=== PATIENT | female | born 1970 | race Caucasian/White ===

== ENCOUNTER → 2016-11-24 | Outpatient (CLI) | payer OTHER ==
[~2016-11-24] MED LIST: CEPH500C PO; CETI10TA84 PO; LDXCR60 TOP; PERM5CRE5 EXT
== END ==
LOC: C.LABSPEC 18:09
PROVIDERS: ATTEND Physician Assistant
DX: T19.2XXA Foreign body in vulva and vagina, initial encounter (principal); N76.0 Acute vaginitis; X58.XXXA Exposure to other specified factors, initial encounter

== ENCOUNTER → 2016-12-17 | Outpatient (CLI) | payer OTHER | END | disposition home or self-care (01) | LOC: C.PAPS 13:41 | PROVIDERS: ATTEND Obstetrics & Gynecology | DX: Z01.411 Encounter for gynecological examination (general) (routine) with abnormal findings (principal); R87.610 Atypical squamous cells of undetermined significance on cytologic smear of cervix (ASC-US) ==

== ENCOUNTER 2017-07-08 11:25 | Emergency (ER) | payer OTHER ==
[~2017-07-08] VITALS: Ht 160 cm; Wt 64.7 kg
[2017-07-08 11:32] VITALS: TEMP 36.6; Ht 160 cm; Wt 64.7 kg
[2017-07-08] MEDS ORDERED: SODIUM CHLORIDE 0.9% 1000ML 1,000 ML IV STA (11:46)
--- NOTE | 2017-07-08 11:50 | EMERGENCY ROOM VISIT NOTE ---
History Report prepared by Adrienne: Jose Jeronimo Under the Supervision of: Dr. Brandon Munson M.D. First contact with patient: 11:36 Chief Complaint: RAPID HEART RATE Stated Complaint: RAPID HEART RATE Nursing Triage Summary: pt reports rapid hr on meds . starting tuesday night has been 140's called pcp sent here for eval History of Present Illness The patient is a 46 year old female who presents to the Emergency Room for evaluation of tachycardia. Notes feeling palpitations starting a few days ago. Admits this started after she had not taken her Verapamil for last a while. Admits similar to previous episode of SVT. Has taken her Verapamil this morning. Other than just a bit tired really no other symptoms. Denies cp, syncope, sob, nausea, vomiting, headache nor any other symptoms. No interventions attempted for this. Discussed with PCP who advised ED evaluations. States she feels well currently. Previously has required IV Adenosine for treatment of SVT. Source of History: patient Onset: 2 days ago Position: other (global) Timing: constant Associated Symptoms: No headache, No chest pain, No SOB, No nausea, No vomiting Review of Systems See HPI for pertinent positives & negatives. A total of 10 systems reviewed and were otherwise negative. Past Medical & Surgical Medical Problems: (1) Hx-Venous Thrombosis&Embolism (2) Ovarian Cyst Nec/Nos Family History Diabetes mellitus Heart disease Hypertension Social History Smoking Status: Never Smoker Alcohol Use: none Marital Status: Housing Status: lives with family Occupation Status: employed Current/Historical Medications Scheduled Verapamil Hcl (Verapamil Hcl Er), 240 MG PO DAILY Allergies Coded Allergies: No Known Allergies (Verified , 07/08/17) Physical Exam Vital Signs Date Time Temp Pulse Resp B/P (MAP) Pulse Ox O2 Delivery O2 Flow Rate FiO2 07/08/17 12:50 72 20 103/72 100 07/08/17 12:32 72 07/08/17 12:15 72 16 103/74 96 Room Air 07/08/17 11:51 72 18 98/72 100 Room Air 07/08/17 11:51 100 Room Air 07/08/17 11:32 36.6 159 18 112/81 97 Room Air Physical Exam GENERAL: Patient is mildly anxious appearing and in minimal distress. HEENT: No acute trauma, normocephalic atraumatic, mucous membranes moist, no nasal congestion, no scleral icterus. NECK: No stridor, no adenopathy, no meningismus, trachea is midline. LUNGS: No dyspnea. Clear to auscultation and equal bilaterally. No wheeze, no rhonchi. HEART: Tachycardiac and rhythm. No murmurs, rubs, gallops appreciated. ABDOMEN: Soft, nontender, bowel sounds positive, no masses appreciated, no peritonitis. BACK: No midline tenderness, no CVA tenderness EXTREMITIES: Normal motion all extremities, no cyanosis, no edema. NEUROLOGIC: Alert and oriented, no acute motor or sensory deficits, no focal weakness, cranial nerves grossly intact. SKIN: No rash, no jaundice, no diaphoresis. Medical Decision & Procedures Laboratory Results Laboratory results as reviewed by me. Medications Administered Medications (Trade) Dose Ordered Sig/Jasmine Route Start Time Stop Time Status Last Admin Dose Admin Sodium Chloride 1,000 ml @ 999 mls/hr Q1H1M STAT IV 07/08/17 11:46 07/08/17 12:46 DC 07/08/17 11:46 999 MLS/HR ECG Indication: palpitations Rate (beats per minute): 148 Rhythm: SVT Findings: no acute ischemic change, no ectopy Change: Repeat EK bpm, normal Sinus, no ectopy, and no ischemia. SVT resolved from earlier. EKG interpreted by me. ED Course 1135: I checked on the room and patient was not found. 1136: The patient was evaluated in room C8. A complete history and physical exam was performed. 1222: I spoke with the patient and they are doing better. 1233: Reevaluated the patient. Discussed results and discharge instructions: She verbalized understanding and agreement. The patient is ready for discharge. Medical Decision Differential: SVT, PACs, PVCs, Cardiac Dysrhythmia, Endocrine Dysfunction, Electrolyte/Metabolic Abnormality, Pulmonary Embolism, Infectious, GI, amongst other pathologies entertained. Very pleasant 46 yr old female arrives in SVT. Trendelenburg with bearing down broke SVT easily and patient feeling well. Given IV fluids and monitored for 1 hour on cardiac monitoring without issue. This has occurred previously and she feels well. EKG consistent with SVT and repeat consistent with NSR without issue. No cp, sob, nor evidence ACS. Without symptoms and fact easily broken with vagal maneuvers I do not feel this represents PE nor requires dimer/cta. Given this has clearly occurred previously I do not feel that labs necessary/ indicated. Notes she will follow up with her PCP to discuss further testing, etc. Stressed very importance of taking her Verapamil. Reviewed symptoms requiring RTED. Medication Reconcilliation Current Medication List: was personally reviewed by me Blood Pressure Screening Patient's blood pressure: Normal blood pressure Blood pressure disposition: Did not require urgent referral Impression Primary Impression: SVT (supraventricular tachycardia) Scribe Attestation The scribe's documentation has been prepared under my direction and personally reviewed by me in its entirety. I confirm that the note above accurately reflects all work, treatment, procedures, and medical decision making performed by me. Departure Information Dispostion Home / Self-Care Referrals Osvaldo Kirkpatrick M.D. (PCP) Patient Instructions My [facility], Understanding Supraventricular Tachycardia SVT
[2017-07-08 11:51] VITALS: O2SAT 100
[2017-07-08] MEDS ORDERED: VERA240C2 PO (11:58)
[2017-07-08 12:50] VITALS: BP 103/72; PULSE 72; O2SAT 100
== END 2017-07-08 12:52 | disposition home or self-care (01) ==
LOC: C.EDB 11:26 → C.EDC 12:52
DX: I47.1 Supraventricular tachycardia (principal); Z86.718 Personal history of other venous thrombosis and embolism; Z83.3 Family history of diabetes mellitus; Z82.49 Family history of ischemic heart disease and other diseases of the circulatory system; Z79.899 Other long term (current) drug therapy

== ENCOUNTER → 2017-07-19 | Outpatient (CLI) | payer OTHER ==
[~2017-07-19] MED LIST changes: -CEPH500C PO; -CETI10TA84 PO; -LDXCR60 TOP; -PERM5CRE5 EXT; +VERA240C2 PO
[2017-07-19 12:43] LABS: BASO % 0.4 %; BASO ABS # 0.02 K/uL (0-0.2); EOS % 7.2 %; EOS ABS # 0.35 K/uL (0-0.5); HEMATOCRIT 40.9 % (37-47); HEMOGLOBIN 14.2 g/dL (12.0-16.0); IG# 0.01 K/uL (0.00-0.02); LYMPH % 33.5 %; LYMPH ABS # 1.63 K/uL (1.2-3.4); MEAN CELL VOLUME 94.7 fL (80-100); MEAN CORPUSCULAR HEMOGLOBIN 32.9 pg (25-34); MEAN CORPUSCULAR HGB CONC 34.7 g/dl (32-36); MEAN PLATELET VOLUME 9.8 fL (7.4-10.4); MONO % 7.2 %; MONO ABS # 0.35 K/uL (0.11-0.59); NEUT % 51.5 %; PLATELET COUNT 252 K/uL (130-400); RED CELL DISTRIBUTION WIDTH CV 12.2 % (11.5-14.5); RED CELL DISTRIBUTION WIDTH SD 42.2 fL (36.4-46.3); WHITE BLOOD COUNT 4.86 K/uL (4.8-10.8)
[2017-07-19 13:20] LABS: BLOOD UREA NITROGEN 14 mg/dl (7-18); CALCIUM 8.8 mg/dl (8.5-10.1); CARBON DIOXIDE 26 mmol/L (21-32); CHOLESTEROL 182 mg/dl (0-200); CREATININE 0.76 mg/dl (0.60-1.20); GLUCOSE 87 mg/dl (70-99); SODIUM 138 mmol/L (136-145)
[2017-07-19 13:31] LABS: LDL CHOLESTEROL CALCULATED 80 mg/dl
== END | disposition home or self-care (01) ==
LOC: C.LABPBG 09:47
PROVIDERS: ATTEND Internal Medicine Geriatric Medicine
DX: Z00.00 Encounter for general adult medical examination without abnormal findings (principal); I47.1 Supraventricular tachycardia; R00.2 Palpitations

== ENCOUNTER → 2017-10-25 | Outpatient (CLI) | payer OTHER ==
--- NOTE | 2017-10-26 15:05 | MAMMOGRAPHY REPORT ---
BILATERAL DIGITAL SCREENING MAMMOGRAM TOMOSYNTHESIS WITH CAD: 10/25/2017 CLINICAL HISTORY: Routine screening. Patient has no complaints. TECHNIQUE: Breast tomosynthesis in addition to standard 2D mammography was performed. Current study was also evaluated with a Computer Aided Detection (CAD) system. COMPARISON: Comparison is made to exams dated: 10/21/2016 mammogram, 10/20/2015 mammogram, 10/17/2014 [facility], 10/16/2013 mammogram, 10/12/2012 mammogram, and 10/12/2011 mammogram - [facility]. BREAST COMPOSITION: There are scattered areas of fibroglandular density in both breasts. FINDINGS: No suspicious mass, architectural distortion or cluster of microcalcifications is seen. IMPRESSION: ACR BI-RADS CATEGORY 1: NEGATIVE There is no mammographic evidence of malignancy. A 1 year screening mammogram is recommended. The pa tient will receive written notification of the results. Approximately 10% of breast cancers are not detected with mammography. A negative mammographic report should not delay biopsy if a clinically suggestive mass is present. Evette hussein/gene:10/25/2017 17:42:11 [employer]or Supervisor: Bel Glez RT(R)(M), [facility] letter sent: Normal 1/2 BI-RADS Code: ACR BI-RADS Category 1: Negative
== END | disposition home or self-care (01) ==
LOC: C.MAMM 08:56
PROVIDERS: ATTEND Physician Assistant Medical
DX: Z12.31 Encounter for screening mammogram for malignant neoplasm of breast (principal)